=== PATIENT | female | born 1995 | race Hispanic/Latino ===

== ENCOUNTER 2017-10-21 03:28 | Emergency (ER) | payer OTHER ==
[2017-10-21 03:55] VITALS: BP 119/83; PULSE 69; RESP 17; TEMP 98; O2SAT 100
--- NOTE | 2017-10-21 05:13 | ED PDOC ---
HPI: General Adult Time Seen by Provider: 10/21/17 04:02 Chief Complaint (Nursing): Dental Pain Chief Complaint (Provider): Dental Issue History Per: Patient History/Exam Limitations: no limitations Additional Complaint(s): 22 y/o female presents to the ED for evaluation of dental graft. Patient states that she had a periodontal procedure done in [place] yesterday where her gum was grafted from her palate and put in place to her right upper gums. Denies pain and fever. Since the procedure she has intermittent light bleeding from graft site. Today at 3:30 in morning she felt graft was loose prompting ED visit. States that she had a follow up appointment in 2 weeks but hopes to see the surgeon on Monday. PMD: Dr. Dillon Past Medical History Reviewed: Historical Data, Nursing Documentation, Vital Signs Vital Signs: Last Vital Signs Temp 98.0 F 10/21/17 03:42 Pulse 69 10/21/17 03:42 Resp 17 10/21/17 03:42 BP 119/83 10/21/17 03:42 Pulse Ox 100 10/21/17 06:18 - Medical History PMH: No Chronic Diseases - Surgical History Surgical History: No Surg Hx - Family History Family History: States: Unknown Family Hx - Social History Current smoker - smoking cessation education provided: No Alcohol: Social Drugs: Denies - Allergies Allergies/Adverse Reactions: Allergies Allergy/AdvReac Type Severity Reaction Status Date / Time No Known Allergies Allergy Verified 10/21/17 03:55 Review of Systems ROS Statement: Except As Marked, All Systems Reviewed And Found Negative (As per HPI, otherwise negative) Constitutional: Positive for: Other (Evaluation of dental graft) Physical Exam - Reviewed Nursing Documentation Reviewed: Yes Vital Signs Reviewed: Yes - Physical Exam Appears: Positive for: Well, Non-toxic, No Acute Distress Head Exam: Positive for: ATRAUMATIC, NORMOCEPHALIC Skin: Positive for: Warm, Dry Eye Exam: Positive for: EOMI, PERRL ENT: Positive for: Normal ENT Inspection, Pharynx Is (clear, uvula midline). Negative for: Pharyngeal Erythema Neck: Positive for: Painless ROM, Supple Cardiovascular/Chest: Positive for: Regular Rate, Rhythm. Negative for: Murmur Respiratory: Positive for: Normal Breath Sounds. Negative for: Decreased Breath Sounds, Accessory Muscle Use, Respiratory Distress Gastrointestinal/Abdominal: Positive for: Soft. Negative for: Tenderness, Distended, Guarding Back: Positive for: Normal Inspection Extremity: Positive for: Normal ROM. Negative for: Deformity Neurologic/Psych: Positive for: Alert, Oriented (x3) Comments: Dental Physical Exam: --graft is placed to right upper lateral gums --no tenderness or swelling noted from the graft --minimal active bleeding noted from the graft --sutures in place and dentition intact , non-tender - ECG O2 Sat by Pulse Oximetry: 100 (RA) Pulse Ox Interpretation: Normal Medical Decision Making Medical Decision Making: Time: 04:22 Clinical Impression: Dental disorder Plan: Patient discharge routine Upon provider reevaluation patient is feeling better, is medically stable, and requires no further treatment in the ED at this time. VSS. Patient will be discharged home. Advised follow up with doctor who performed the procedure for further evaluation. If unavailable, patient advised to see general dentist or dental clinic. Return to the emergency room at any time for any new or worsening symptoms. Patient states she fully agrees with and understands discharge instructions. States that she agrees with the plan and disposition. Verbalized and repeated discharge instructions and plan. I have given the patient opportunity to ask any additional questions. Scribe Attestation: Documented by Silvana Minaya acting as a scribe for CHERIE Sanchez. MD Gaming Attestation: All medical record entries made by the Scribe were at my direction and personally dictated by me. I have reviewed the chart and agree that the record accurately reflects my personal performance of the history, physical exam, medical decision making, and the department course for this patient. I have also personally directed, reviewed, and agree with the discharge instructions and disposition. Disposition - Clinical Impression Clinical Impression: Dental disorder - Patient ED Disposition Is Patient to be Admitted: No Counseled Patient/Family Regarding: Diagnosis, Need For Followup - Disposition Disposition: Routine/Home Disposition Time: 04:22 Condition: FAIR Instructions: General (DC), Your Dental Health and Your Medical Health, How to Care for Your Mouth and Teeth Forms: [id number] (Kinyarwanda) Print Language: [id number]
== END 2017-10-21 04:40 | disposition home or self-care (01) ==
LOC: H.ER 03:28
DX: K08.9 Disorder of teeth and supporting structures, unspecified (principal)